=== PATIENT | female | born 1965 | race Caucasian/White ===

== ENCOUNTER → 2021-08-11 | Day surgery (SDC) | payer OTHER ==
[~2021-08-11] VITALS: Ht 167.6 cm; Wt 57.6 kg
[~2021-08-11] MED LIST: CALCIUM500 MG PO; MAGNESIUM250 M1 PO; TYLENOL ARTHRI650 MG PO; VITAMIN E400 UNIT PO; VITRUM SENIOR1 EACH PO; [UNRECOGNIZED DRUG - OTHER] VAG
--- NOTE | ~2021-08-11 | O ---
[facility] [place] [address] OPERATIVE REPORT Name: SAURABH REYNA Room #: REG [facility]..#: [id number] Admission: 08/11/21 Attend Phys: Eriberto Posey MD Discharge: Date of : 63 Report #: [id number] THIS REPORT FOR: cc: Edith Rodrigez MD,Edith Posey,Eriberto Danielle MD ~ cc: Edith Rodrigez MD DATE OF SERVICE: 08/11/2021 PATIENT OF: Dr. Eriberto Posey and Dr. Edith Rodrigez. PREOPERATIVE DIAGNOSES: Cholelithiasis, cholecystitis, biliary colic. POSTOPERATIVE DIAGNOSES: Cholelithiasis, cholecystitis, biliary colic. PROCEDURE: Laparoscopic cholecystectomy. SURGEON: Eriberto Posey MD ANESTHESIA: General. PROJECT SUPERINTENDENT: Shari Bender. She is an RN. DESCRIPTION OF PROCEDURE: The patient was brought to the operating room and placed on the operating table in the supine position. Sequential compression devices were in place for DVT prophylaxis. The patient was given appropriate preoperative dose of Mefoxin. She underwent a general endotracheal anesthesia and the abdomen was then prepped and draped in a sterile fashion. Skin and subcutaneous tissue around the umbilicus was then infiltrated with 0.5% Marcaine. Transverse infraumbilical skin incision was then performed using #11 scalpel blade. Hemostasis obtained using electrocautery. Dissection was carried down through the subcutaneous tissue to the fascia, which was then grasped between 2 Royal clamps and incised with the curved Strange scissors. The peritoneum was entered and a pursestring suture of 0 Vicryl was then placed in the fascia. A 12 mm disposable Chintan port was then inserted through the opening, held into place with the balloon port and the purse-string suture. Pneumoperitoneum was obtained to a level of 10-15 mmHg. Laparoscope was inserted through this port and two lateral Surgiports as well as an upper midline 12 mm Surgiport were all inserted under direct visualization after infiltration with 0.5% Marcaine. The gallbladder was then grasped and retracted superiorly and some adhesions to the lateral inferior edge of the liver were carefully dissected free using the hook electrocautery. The cystic duct and artery were then carefully dissected free and the triangle of safety was clearly identified separate cystic duct, cystic artery and the cystic common bile duct junction. The cystic duct was then triply clipped on the common bile duct side [address] [address] OPERATIVE REPORT Name: SAURABH REYNA Room #: REG [facility]#: [id number] Admission: 08/11/21 Attend Phys: Eriberto Posey MD Discharge: Date of : 63 Report #: [id number] and doubly clipped on the gallbladder side and divided with the scissors. The cystic artery was doubly clipped on each side and divided with scissors. The gallbladder was then dissected free from the bed using the hook electrocautery. Prior to completing the dissection, the gallbladder was retracted superiorly and the bed inspected for hemostasis, which was found to be intact. The gallbladder was then transected and brought out through the periumbilical port and sent a specimen to pathology. The remaining ports were then all removed under direct visualization and hemostasis intact at each port site. Pneumoperitoneum was released and the periumbilical port fascia was then closed using the 0 Vicryl pursestring suture. The upper midline fascia was then closed using a [id number] 0 Vicryl suture. Skin was then closed using interrupted vertical mattress 5-0 nylon sutures and wounds dressed with Band-Aids. The patient was then awakened from the general endotracheal anesthesia, extubated and taken to recovery room in good condition. Estimated blood loss was approximately 10 mL and the patient tolerated the procedure well. All sponge, lap and instrument counts were correct x2. By: [id number] Eriberto Posey MD /nt
[2021-08-11 08:28] VITALS: BP 94/56
[2021-08-11 11:11] VITALS: BP 94/56
--- NOTE | 2021-08-16 10:07 | PATH ---
[facility] [address] [place] [address] PATHOLOGY RPT PROCEDURE Name: SAURABH REYNA Room #: REG [facility].#: [id number] Admission: 08/11/21 Date of : 63 Discharge: Report #: [id number] Path Case #: [id number] [facility] Accession Number: [id number] . 01 Material submitted: . gallbladder - GALLBLADDER . 01 Clinical history: . LAPAROSCOPIC CHOLECYSTECTOMY- SJ GALLSTONES, BILIARY COLIC . 02 Diagnosis: Gallbladder, cholecystectomy: - Bile stained gallbladder wall without cholelithiasis. (ANK:[place]; 08/13/2021) [facility] 08/13/2021 1026 Local . 02 Electronically signed: . Carmen Naidu MD, Pathologist NPI- [id number] . 01 Gross description: . Fixative: Formalin Labeled: Gallbladder Specimen received: Intact gallbladder Dimensions: 8.5 x 3.0 x 2.9 cm Serosa: Blue-andersen Lymph node: Not identified Mucosa: Velvety, bile-stained Average wall thickness: 0.1 cm Calculi: None identified (upon filtration of the gallbladder) Abnormalities: None identified . Director Of Orthopedics body, fundus, and the cystic duct margin in cassette A1. (CAA; 08/12/2021) QA/[facility] 08/12/2021 0932 Local . 02 Pathologist provided ICD-10: K80.20 . 02 CPT . 187881 Specimen Comment: A courtesy copy of this report has been sent to [phone] Specimen Comment: [id number] Specimen Comment: Report sent to / DR MONTGOMERY Specimen Comment: A duplicate report has been generated due to demographic [address] [address] PATHOLOGY RPT PROCEDURE Name: SAURABH REYNA Room #: REG [facility].#: [id number] Admission: 08/11/21 Date of : 63 Discharge: Report #: [id number] Path Case #: [id number] updates. Performed at: 01 [facility] [address] [facility] [address] [place], [place] [id number] MD Shivam Russell MD Phone: [phone] Performed at: [address] [id number] MD Carmen Naidu MD Phone: [phone]
== END | disposition home or self-care (01) ==
LOC: OR 05:42
PROVIDERS: ATTEND Surgery
DX: K82.8 Other specified diseases of gallbladder (principal); Z98.890 Other specified postprocedural states; Z20.822 Contact with and (suspected) exposure to COVID-19; Z79.899 Other long term (current) drug therapy
CPT/HCPCS: 50010; 50101; 50411; 50555; 51474; 51489; 52266; 53314; 56462; 56524; 56528; 58574; 62110; 62900; 70005